=== PATIENT | male | born 1975 | race Caucasian/White ===

== ENCOUNTER 2022-03-18 09:46 | Emergency (ER) | payer OTHER, SELFPAY ==
--- OUTSIDE RECORDS SUMMARY | 2022-03-18 09:57 | XMS REPORT | Continuity of Care Document ---
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 Hg) 2016-01-10 17:17:00 Mem [facility]rial [facility] [place] Heart Rate 2016-01-10 17:17:00 [facility] Temperature Oral (F) 2016-01-10 17:17:00 97.6 F [facility] Systolic (mm Hg) 2016-01-10 12:27:00 [place] rial [facility] Diastolic (mm Hg) 2016-01-10 12:27:00 Mem orial [facility] [place] Respitory Rate 2016-01-10 12:27:00 [facility] [place] Heart Rate 2016-01-10 12:27:00 [facility] [place] Temperature Oral (F) 2016-01-10 12:27:00 98.5 F [facility] [place] Respitory Rate 2016-01-10 09:45:00 [facility] [place] Heart Rate 2016-01-10 09:45:00 [facility] [place] Temperature Oral (F) 2016-01-10 09:45:00 98.3 F [facility] Systolic (mm Hg) 2016-01-10 09:45:00 [place] rial [facility] Diastolic (mm Hg) 2016-01-10 09:45:00 Mem orial [place] Height 2016-01-08 23:55:00 172.72 cm [facility] Weight 2016-01-08 23:55:00 [facility] BMI Calculated 2016-01-08 23:55:00 Mem[facility] al [place] BMI Calculated 2016-01-08 17:31:00 [facility] Weight 2016-01-08 17:31:00 [facility] Height 2016-01-08 17:31:00 172.72 cm [facility] BMI Calculated 2016-01-05 15:52:00 [facility] [place] Weight 2016-01-05 15:52:00 [facility] [place] Height 2016-01-05 15:52:00 175.26 cm [facility] Systolic (mm Hg) 2016-01-03 16:57:00 [place] [facility] Diastolic (mm Hg) 2016-01-03 16:57:00 Mem orial [place] Respitory Rate 2016-01-03 16:57:00 [facility] [place] Heart Rate 2016-01-03 16:57:00 [facility] [place] Temperature Oral (F) 2016-01-03 16:57:00 98.2 F [facility] Temperature Oral (F) 2016-01-03 13:07:00 98 F [facility] Respitory Rate 2016-01-03 13:07:00 [facility] [place] Heart Rate 2016-01-03 13:07:00 [facility] Systolic (mm Hg) 2016-01-03 13:07:00 [place] rial Jaquan Diastolic (mm Hg) 2016-01-03 13:07:00 Mem [facility]rial [facility] [place] Systolic (mm Hg) 2016-01-03 09:21:00 [place] rial [facility] Diastolic (mm Hg) 2016-01-03 09:21:00 Mem orial [facility] Temperature Oral (F) 2016-01-03 09:21:00 98.5 F [facility] Respitory Rate 2016-01-03 09:21:00 [facility] [place] Heart Rate 2016-01-03 09:21:00 [facility] [place] Weight 2015-12-30 05:44:00 [facility] BMI Calculated 2015-12-30 05:44:00 [facility] [place] Height 2015-12-30 05:44:00 172.72 cm [facility] Height 2015-12-29 17:10:00 172.72 cm [facility] Weight 2015-12-29 17:10:00 [facility] BMI Calculated 2015-12-29 17:10:00 Memori al [facility] Procedures Procedure Date / Time Performed Performing Clinician [facility] e ASSIGNMENT OF BENEFITS 2020-12-08 15:33:46 Doctor Unassigned, No [facility] [place] Name [facility] ORIF - Open reduction [facility] and internal fixation of fracture Plan of Care Planned Activity Planned Date Details Comments Source Future Scheduled 2021-04-04 INFLUENZA VACCINE Univer sity of Test 00:00:00 (Season Ended) [facility] [place] [facility] [code = INFLUENZA Branch VACCINE (Season Ended)] Future Scheduled 2021-04-04 INFLUENZA VACCINE Univer sity of Test 00:00:00 (Season Ended) [facility] [place] [facility] [code = INFLUENZA Branch VACCINE (Season Ended)] Diagnostic Test 2020-12-08 ADC DRUG SCREEN Expected: Universit y of Pending 00:00:00 HPP II [code = 12/08/2020, [facility] [address]] Expires: Branch 12/08/2021 Future Scheduled 1996 DTaP,Tdap,and Td Univers ity of Test 00:00:00 Vaccines (1 - [facility] Tdap) [code = Branch DTaP,Tdap,and Td Vaccines (1 - Tdap)] Future Scheduled 1996 DTaP,Tdap,and Td Univers ity of Test 00:00:00 Vaccines (1 - [facility] Tdap) [code = Branch DTaP,Tdap,and Td Vaccines (1 - Tdap)] Future Scheduled 1995 Hepatitis C [facility] of Test 00:00:00 screening [facility] [place] [facility] (procedure) [code Branch = [id number]] Future Scheduled 1995 Hepatitis C [facility] Test 00:00:00 screening [facility] (procedure) [code Branch = [id number]] Future Scheduled 1993 SARS-CoV-2 [facility] Test 00:00:00 (COVID-19) Vaccine [place] [facility] (1) [code = Branch SARS-CoV-2 (COVID-19) Vaccine (1)] Future Scheduled 1993 SARS-CoV-2 [facility] of Test 00:00:00 (COVID-19) Vaccine [place] [facility] (1) [code = Branch SARS-CoV-2 (COVID-19) Vaccine (1)] Future Scheduled 1989 Depression [facility] Test 00:00:00 screening [facility] [place] [facility] (procedure) [code Branch = 398906258] Future Scheduled 1989 Depression [facility] Test 00:00:00 screening [facility] [place] [facility] (procedure) [code Branch = 092582757] Future Scheduled ADC DRUG SCREEN Universi ty of Test HPP II [code = [facility] 13969] Branch Encounters Start End Encounter Admission Attending Care Care Encounter Source Date/Time Date/Time Type Type Clinicians Facility Department ID 2022-02-23 2022-02-23 Outpatient ERICKSON_R [facility] [id number] [place] 01:35:00 01:35:00 [facility] 2022-02-21 2022-02-21 Credentialing Coordinator Jr [facility] [id number] [facility] 11:45:00 12:00:00 Visit Noé Olson [id number] [facility] [id number] Tate COLVIN [id number] Dc dical NAL 353 [facility] 2022-01-29 2022-01-29 Outpatient ERICKSON_R [facility] [id number] [place] 11:03:00 11:03:00 628 [facility] 2022-01-29 2022-01-29 Outpatient Chretien, [facility] [id number] 00:00:00 00:00:00 Nicole [id number] 2022-01-23 2022-01-23 Outpatient ERICKSON_R [facility] [id number] [place] 09:06:00 09:06:00 622 [facility] 2022-01-22 2022-01-22 Outpatient CHRETIEN_F [facility] [id number] [place] 10:30:00 10:30:00 621 [facility] 2021-12-25 2021-12-25 Outpatient WATERS_S [facility] [id number] [place] 02:30:00 02:30:00 524 [facility] 2021-11-28 2021-11-28 Outpatient WATERS_S [facility] [id number] [place] 11:53:00 11:53:00 427 [facility] 2021-11-28 2021-11-28 Outpatient Chretien, [facility] [id number] 00:00:00 00:00:00 Nicole [id number] 2021-11-28 2021-11-28 Outpatient Julio Cesar [facility] [id number] 00:00:00 00:00:00 Nicole [id number] 2021-11-06 2021-11-06 Outpatient [facility]ERS_S [facility] [id number] [place] 01:44:00 01:44:00 405 [facility] 2021-10-12 2021-10-12 Outpatient W[facility]ERS_S [facility] [id number] [place] 11:47:00 11:47:00 311 [facility] 2021-10-12 2021-10-12 Outpatient Damon [facility] [id number] 00:00:00 00:00:00 Anisa [id number] 2021-10-12 2021-10-12 Outpatient Damon [facility] [id number] 00:00:00 00:00:00 Anisa [id number] 2021-10-10 2021-10-10 Outpatient [facility]_S [facility] [id number] [place] 11:01:00 11:01:00 309 [facility] 2021-10-02 2021-10-02 Outpatient [facility] 931 [place] 02:48:00 02:48:00 _L 301 [facility] 2021-09-03 2021-09-03 Outpatient [facility] 93 [place] 02:45:00 02:45:00 _L 131 [facility] 2021-08-08 2021-08-08 Outpatient [facility] 93 [place] 05:49:00 05:49:00 _L 105 [facility] 2021-08-08 2021-08-08 Outpatient Brianna [facility] [id number] 00:00:00 00:00:00 Jacobo [id number] 2021-08-06 2021-08-06 Outpatient [facility] 931 [place] 05:36:00 05:36:00 _L 103 [facility] 2021-08-06 2021-08-06 Outpatient Damir [facility] [id number] 00:00:00 00:00:00 Jeremy [id number] Jerel [id number] 2021-06-16 2021-06-16 Outpatient [facility] 931 [place] 02:22:00 02:22:00 _L 113 [facility] 2021-05-12 2021-05-12 Outpatient [facility] 93 [place] 03:48:00 03:48:00 _L 009 [facility] 2021-04-07 2021-04-07 Outpatient [facility] 931 [place] 02:52:00 02:52:00 _L 904 [facility] 2021-03-06 2021-03-06 Outpatient [facility] 93 [place] 11:42:00 11:42:00 _L 803 [facility] 2021-03-06 2021-03-06 Outpatient [facility] 3ff [id number] 00:00:00 00:00:00 , Josefa [id number] Terri [id number] 2021-03-06 2021-03-06 Outpatient [facility] [id number] 00:00:00 00:00:00 , Josefa [id number] Terri [id number] 2021-03-03 2021-03-03 Outpatient [facility] 931 [place] 03:19:00 03:19:00 _L 731 [facility] 2021-03-03 2021-03-03 Outpatient [facility] 93 [place] 03:19:00 03:19:00 _L 802 [facility] 2021-02-14 2021-02-14 Outpatient [facility] 931 [place] 03:31:00 03:31:00 _L 714 [facility] 2021-02-13 2021-02-13 Outpatient [facility] 93 [place] 04:28:00 04:28:00 _L 713 [facility] 2021-02-13 2021-02-13 Outpatient [facility] [id number] 00:00:00 00:00:00 , Josefa [id number] Terri [id number] 2020-09-12 2020-09-12 Outpatient [facility] 931 [place] 05:38:00 05:38:00 _L 209 [facility] 2020-09-12 2020-09-12 Outpatient [facility] 931 [place] 05:38:00 05:38:00 _L 712 [facility] 2020-09-12 2020-09-12 Outpatient [facility] [id number] 00:00:00 00:00:00 , Josefa [id number] Terri [id number] 2020-08-24 2020-08-24 Outpatient [facility] 93 [place] 03:34:00 03:34:00 _L 121 [facility] 2020-08-21 2020-08-21 Outpatient [facility] 93 [place] 09:24:00 09:24:00 _L 118 [facility] 2020-08-18 2020-08-18 Outpatient [facility] 931 [place] 12:21:00 12:21:00 _L 115 [facility] 2020-08-18 2020-08-18 Outpatient [facility] [id number] 00:00:00 00:00:00 , Josefa [id number] Terri [id number] 2017-01-07 2017-01-07 [facility]STIANO [facility]AR, [facility] UTP [id number] [place] 10:15:00 10:15:00 t; Regina CESAR Physi ci Regina ALVARADO ans 2016-12-10 2016-12-10 AppointCHRISTIANO Celeste UTP UTP [id number] [place] 10:30:00 10:30:00 t; Regina CESAR Physi ci Regina ALVARADO ans 2016-09-10 2016-09-10 AppointCHRISTIANO Celeste UTP UTP [id number] [place] 10:45:00 10:45:00 t; Regina CESAR Physi arnulfo ALVARADO M.D. ans 2016-07-09 2016-07-09 [facility]ILBERT TREVINO UTP [id number] [place] 10:15:00 10:15:00 t; MATTHIAS TREVINO P.A. Physici JEANA, ans P.A. 2016-04-16 2016-04-16 AppointCHRISTIANO Celeste UTP UTP [id number] [place] 10:00:00 10:00:00 t; Regina CESAR Physi arnulfo ALVARADO M.D. ans 2016-03-05 2016-03-05 AppointGILBERT [place] UTP [id number] [place] 09:15:00 09:15:00 t; MATTHIAS TREVINO P.A. Physici JEANA, ans P.A. 2016-01-30 2016-01-30 AppointCHRISTIANO Celeste UTP UTP [id number] [place] 09:45:00 09:45:00 t; Regina CESAR Physi ci Regina ALVARADO ans 2016-01-15 2016-01-16 [facility] [id number] [place] 12:32:00 04:59:00 Surgery r [place] 02 [facility] 2016-01-15 2016-01-15 Appointmen CHRISTIANO CESAR, [facility] UTP [id number] [place] 07:30:00 07:30:00 t; Regina CESAR Physi arnulfo ALVARADO M.D. ans 2016-01-08 2016-01-[address] [facility] [id number] [place] 16:27:00 17:30:00 r Ja[facility] 2016-01-08 2016-01-08 Appointmen CHRISTIANO CESAR, [facility] UTP [id number] [place] 13:00:00 13:00:00 t; Regina CESAR Physi arnulfo ALVARADO M.D. ans 2015-12-29 2016-01-03 Inpatient [facility] [id number] [place] 17:10:00 23:20:00 r [place] 00 [facility] Results Test Description Test Time Test Comments Results Result Comments Source [facility] 2016-01-10 13:26:00 Test Item Value Reference Range Interpretation Comme nts AGAP (test code = AGAP) 13.5 10.0-20.0 [facility]HkugvckSQKHXPBHUWSD8953-55-45 13:26:00 Test Item Value Reference Range Interpretation Comments eGFR (test code = eGFR) 112 [facility] CenterRhmtqgyXGQMLZFTIJEG9918-46-22 13:26:00 Test Item Value Reference Range Interpretation Comments CO2 (test code = CO2) 26 24-32 [facility] CenterYyuvmduOXXNYMEQFJXH0345-18-71 13:26:00 Test Item Value Reference Range Interpretation Comments Sodium Lvl (test code = Sodium Lvl) 139 135-145 [facility] CenterOwunsigZMXKOZDNSCBC2527-90-39 13:26:00 Test Item Value Reference Range Interpretation Comments Creatinine Lvl (test code = Creatinine 0.82 0.50-1.40 Lvl) [facility] CenterHcjbuieZMNVYKFHEIFM6315-42-93 13:26:00 Test Item Value Reference Range Interpretation Comments Chloride Lvl (test code = Chloride Lvl) 104 95-109 [facility] CenterPibcszyAQDHHZQAJUFN1675-67-67 13:26:00 Test Item Value Reference Range Interpretation Comments Potassium Lvl (test code = Potassium 4.5 3.5-5.1 Lvl) [facility] CenterRpekxryYTHAYGNTAKVZ2272-45-19 13:26:00 Test Item Value Reference Range Interpretation Comments Glucose Lvl (test code = Glucose Lvl) 96 70-99 [facility] CenterMnkymofKRXNPUMOAPWN9083-30-31 13:26:00 Test Item Value Reference Range Interpretation Comments BUN (test code = BUN) 14 7-22 [facility] CenterFfqwricTCEEFKVWVCBD1323-29-19 13:26:00 Test Item Value Reference Range Interpretation Comments Calcium Lvl (test code = Calcium Lvl) 9.1 8.5-10.5 [facility] CenterXacgnbqHMZLUXQYLXJY1800-18-18 13:26:00 Test Item Value Reference Range Interpretation Comments Albumin Lvl (test code = Albumin Lvl) 3.4 3.5-5.0 [facility] CenterPxzwyzoZROUZHINQKUH2995-26-55 13:26:00 Test Item Value Reference Range Interpretation Comments Phosphorus (test code = Phosphorus) 4.2 2.5-4.5 [facility]JnexembTMYVMNPPQS5074-71-46 13:26:00 Test Item Value Reference Range Interpretation Comments Segs (test code = Segs) 68.6 45.0-75.0 [facility]neFhbhunoYRBSRFJPHE7846-29-53 13:26:00 Test Item Value Reference Range Interpretation Comments Eosinophils (test code = 0.9 See_Comment [A utomated message] The Eosinophils) system which ge nerated this result tra nsmitted reference range : <=4.0. The reference r diallo was not used to int erpret this result as normal/abnormal . [facility]neZaelbtkMPJISEXRKV5706-41-25 13:26:00 Test Item Value Reference Range Interpretation Comments Monocytes (test code = Monocytes) 10.0 2.0-12.0 [facility]neQcxffnzAZEVJKJNKB7292-92-33 13:26:00 Test Item Value Reference Range Interpretation Comments Segs-Bands # (test code = Segs-Bands #) 5.9 1.5-8.1 [facility]neHncbtasVFSMMWLUMI7074-45-97 13:26:00 Test Item Value Reference Range Interpretation Comments Basophils (test code = 0.4 See_Comment [Aut omated message] The Basophils) system which ge nerated this result tra nsmitted reference range : <=1.0. The reference r diallo was not used to int erpret this result as normal/abnormal . [facility]neBrwmmzbDZALXFTJCD8881-64-51 13:26:00 Test Item Value Reference Range Interpretation Comments Lymphocytes # (test code = Lymphocytes 1.7 1.0-5.5 #) [facility]neHnrxdlmRAXHGPISIS6406-66-11 13:26:00 Test Item Value Reference Range Interpretation Comments Monocytes # (test code 0.9 See_Comment [Aut omated message] The = Monocytes #) system which generated this result tra nsmitted reference range : <=0.8. The reference r diallo was not used to int erpret this result as normal/abnormal . [facility]neTsisxjoNGILLRTXBZ8074-91-50 13:26:00 Test Item Value Reference Range Interpretation Comments Eosinophils # (test code 0.1 See_Comment [A utomated message] The = Eosinophils #) system whic h generated this result tra nsmitted reference range : <=0.5. The reference r diallo was not used to int erpret this result as normal/abnormal . [facility]neOsvkmkyVFMEBOOJJJ1172-41-96 13:26:00 Test Item Value Reference Range Interpretation Comments Lymphocytes (test code = Lymphocytes) 20.1 20.0-40.0 [facility]neErlvhtfKHJGMKGRMG5324-21-63 13:26:00 Test Item Value Reference Range Interpretation Comments RDW (test code = RDW) 14.6 11.5-14.5 [facility]neMrskmjaKKEDDGYKNP3367-25-73 13:26:00 Test Item Value Reference Range Interpretation Comments Platelet (test code = Platelet) 323 133-450 [facility]neNtiyfmxKYCDSDOORB2329-14-59 13:26:00 Test Item Value Reference Range Interpretation Comments MPV (test code = MPV) 7.9 7.4-10.4 [facility]neXqusuwaBXXPLSDHTM7386-04-75 13:26:00 Test Item Value Reference Range Interpretation Comments Hct (test code = Hct) 32.5 42.0-54.0 [facility]neCbfxiimWGHDPFAQLR6633-46-06 13:26:00 Test Item Value Reference Range Interpretation Comments MCH (test code = MCH) 31.2 pg 27.0-31.0 [facility] Cle[facility]neDammmhsQEKKUQBTRE0469-10-83 13:26:00 Test Item Value Reference Range Interpretation Comments MCV (test code = MCV) 94.2 80.0-94.0 [facility] Cle[facility]neLlvywzpSLSSJHTSXI1177-02-84 13:26:00 Test Item Value Reference Range Interpretation Comments MCHC (test code = MCHC) 33.1 32.0-36.0 [facility] CleburneTraltmtZKMBKGXQLJ0250-56-98 13:26:00 Test Item Value Reference Range Interpretation Comments WBC (test code = WBC) 8.6 3.7-10.4 [facility]neXqpbdnaUJGBBQHWJC1660-17-22 13:26:00 Test Item Value Reference Range Interpretation Comments Hgb (test code = Hgb) 10.8 14.0-18.0 [facility]neKrbdahgWEJCTIXYPU3711-06-14 13:26:00 Test Item Value Reference Range Interpretation Comments RBC (test code = RBC) 3.45 4.70-6.10 [facility]neOqxchjuZHHCTNGBSA5708-27-63 09:41:00 Test Item Value Reference Range Interpretation Comments Lymphocytes # (test code = Lymphocytes 1.5 1.0-5.5 #) [facility]neBxcsgzyBCIMUUYXUB4751-29-27 09:41:00 Test Item Value Reference Range Interpretation Comments Segs-Bands # (test code = Segs-Bands #) 9.6 1.5-8.1 [facility] CleburneLtfvtbkNWWJMZNDIX6337-70-15 09:41:00 Test Item Value Reference Range Interpretation Comments Monocytes # (test code 1.1 See_Comment [Aut omated message] The = Monocytes #) system which generated this result tra nsmitted reference range : <=0.8. The reference r diallo was not used to int erpret this result as normal/abnormal . [facility]neAqkmhugFQTRWZRWYS1266-36-22 09:41:00 Test Item Value Reference Range Interpretation Comments Segs (test code = Segs) 78.3 45.0-75.0 [facility] CleburneErlsnzbCSAAOEZWMX5584-14-49 09:41:00 Test Item Value Reference Range Interpretation Comments Lymphocytes (test code = Lymphocytes) 12.3 20.0-40.0 [facility] Cle[facility]neQbwanogCIEXGYJQMM5923-31-07 09:41:00 Test Item Value Reference Range Interpretation Comments Basophils (test code = 0.2 See_Comment [Aut omated message] The Basophils) system which ge nerated this result tra nsmitted reference range : <=1.0. The reference r diallo was not used to int erpret this result as normal/abnormal . [facility]neAoppysiAVSIGDADLZ4475-34-01 09:41:00 Test Item Value Reference Range Interpretation Comments Monocytes (test code = Monocytes) 9.2 2.0-12.0 [facility]neHbkrmtaGLHNASNIMN7551-39-31 09:41:00 Test Item Value Reference Range Interpretation Comments Platelet (test code = Platelet) 341 133-450 [facility]neYfycdgrHHOABGPCDD7932-32-59 09:41:00 Test Item Value Reference Range Interpretation Comments MPV (test code = MPV) 7.8 7.4-10.4 [facility]neVsqfxajHBZLHFGWIT0583-43-19 09:41:00 Test Item Value Reference Range Interpretation Comments Hct (test code = Hct) 33.4 42.0-54.0 [facility]neQubpavcPEKDCFMKQX4140-45-03 09:41:00 Test Item Value Reference Range Interpretation Comments Hgb (test code = Hgb) 11.0 14.0-18.0 [facility]neJzrosxzMRFWFLFHYG7229-03-65 09:41:00 Test Item Value Reference Range Interpretation Comments RBC (test code = RBC) 3.48 4.70-6.10 [facility]neHpfsceoNBRIDAXINJ1282-09-57 09:41:00 Test Item Value Reference Range Interpretation Comments WBC (test code = WBC) 12.2 3.7-10.4 [facility]burneSgzxfpeNXQDNKAMHB4549-59-89 09:41:00 Test Item Value Reference Range Interpretation Comments RDW (test code = RDW) 14.7 11.5-14.5 [facility]neEmgsvpeCTGDMTMDIQ8762-51-16 09:41:00 Test Item Value Reference Range Interpretation Comments MCHC (test code = MCHC) 33.0 32.0-36.0 [facility] CleburneIodzorwAZEGSELCQA4877-32-31 09:41:00 Test Item Value Reference Range Interpretation Comments MCH (test code = MCH) 31.7 pg 27.0-31.0 [facility] CleburneHzhppmeLVMWHWNHYZ5125-75-86 09:41:00 Test Item Value Reference Range Interpretation Comments MCV (test code = MCV) 96.0 80.0-94.0 [facility]neSzqhxgkJQXCWQBZSV9902-97-50 21:40:00 Test Item Value Reference Range Interpretation Comments RDW (test code = RDW) 14.8 11.5-14.5 [facility]neWbjtejrQAAGWQQAAO8135-23-46 21:40:00 Test Item Value Reference Range Interpretation Comments MPV (test code = MPV) 7.9 7.4-10.4 [facility]neOpqoswiVYOXTOSBKZ6019-71-95 21:40:00 Test Item Value Reference Range Interpretation Comments Platelet (test code = Platelet) 364 133-450 [facility]neBwztennGYRQRBZMPP5195-15-62 21:40:00 Test Item Value Reference Range Interpretation Comments WBC (test code = WBC) 14.1 3.7-10.4 [facility] CleburneRcrcctxIHCRAXYPQW5426-86-82 21:40:00 Test Item Value Reference Range Interpretation Comments RBC (test code = RBC) 3.63 4.70-6.10 [facility]neRqbhavjMAYNGPOTKN0006-51-95 21:40:00 Test Item Value Reference Range Interpretation Comments Hct (test code = Hct) 35.2 42.0-54.0 [facility] CleburneBmertlfEANINISTZR6486-47-27 21:40:00 Test Item Value Reference Range Interpretation Comments MCH (test code = MCH) 31.1 pg 27.0-31.0 [facility] [place]xuirhlLDRXMEDTDL3604-69-21 21:40:00 Test Item Value Reference Range Interpretation Comments MCV (test code = MCV) 97.0 80.0-94.0 [facility] [place]AvxnxtfCTOGPIKVCI8560-95-63 21:40:00 Test Item Value Reference Range Interpretation Comments MCHC (test code = MCHC) 32.1 32.0-36.0 [facility] [place]neVziktuyPVAVCVVRNH2517-49-50 21:40:00 Test Item Value Reference Range Interpretation Comments Hgb (test code = Hgb) 11.3 14.0-18.0 [facility] [place]neBbokrnwFIBAOUVUJX0093-60-74 21:40:00 Test Item Value Reference Range Interpretation Comments Eosinophils # (test code 0.1 See_Comment [A utomated message] The = Eosinophils #) system whic h generated this result tra nsmitted reference range : <=0.5. The reference r diallo was not used to int erpret this result as normal/abnormal . [facility] [place]neHxrkuyoMMEBERKVBE4072-93-37 21:40:00 Test Item Value Reference Range Interpretation Comments Monocytes # (test code 0.5 See_Comment [Aut omated message] The = Monocytes #) system which generated this result tra nsmitted reference range : <=0.8. The reference r diallo was not used to int erpret this result as normal/abnormal . [facility] [place]neZryfzmeLDKSANQTHW2075-42-65 21:40:00 Test Item Value Reference Range Interpretation Comments Segs-Bands # (test code = Segs-Bands #) 11.6 1.5-8.1 [facility] [place]neMwyjcaqHZAJGGXGNF9354-99-00 21:40:00 Test Item Value Reference Range Interpretation Comments Basophils (test code = 0.3 See_Comment [Aut omated message] The Basophils) system which ge nerated this result tra nsmitted reference range : <=1.0. The reference r diallo was not used to int erpret this result as normal/abnormal . [facility] [place]neCrawcykLCCAQGJYJQ2342-43-10 21:40:00 Test Item Value Reference Range Interpretation Comments Eosinophils (test code = 0.9 See_Comment [A utomated message] The Eosinophils) system which ge nerated this result tra nsmitted reference range : <=4.0. The reference r diallo was not used to int erpret this result as normal/abnormal . [facility] [place]neVtwnzccFGZZACEEOL9521-34-71 21:40:00 Test Item Value Reference Range Interpretation Comments Lymphocytes # (test code = Lymphocytes 1.7 1.0-5.5 #) [facility] [place]neSvgdejwRFKLEMZIUA4092-48-12 21:40:00 Test Item Value Reference Range Interpretation Comments Segs (test code = Segs) 82.8 45.0-75.0 [facility] [place]neFhxkfkhFALZPCBPQP0355-39-89 21:40:00 Test Item Value Reference Range Interpretation Comments Monocytes (test code = Monocytes) 3.6 2.0-12.0 [facility] [place]neHvxzzpiODMNWSYDXD0368-10-62 21:40:00 Test Item Value Reference Range Interpretation Comments Lymphocytes (test code = Lymphocytes) 12.4 20.0-40.0 [facility]2016-06-01 09:44:00 Test Item Value Reference Range Interpretation Comments Phosphorus (test code = Phosphorus) 4.3 2.5-4.5 [facility]2016-06-01 09:44:00 Test Item Value Reference Range Interpretation Comments eGFR (test code = eGFR) 124 [facility]2016-06-01 09:44:00 Test Item Value Reference Range Interpretation Comments Chloride Lvl (test code = Chloride Lvl) 104 95-109 [facility]2016-06-01 09:44:00 Test Item Value Reference Range Interpretation Comments CO2 (test code = CO2) 25 24-32 [facility]2016-06-01 09:44:00 Test Item Value Reference Range Interpretation Comments AGAP (test code = AGAP) 16.0 10.0-20.0 [facility]2016-06-01 09:44:00 Test Item Value Reference Range Interpretation Comments Calcium Lvl (test code = Calcium Lvl) 8.0 8.5-10.5 [facility]2016-06-01 09:44:00 Test Item Value Reference Range Interpretation Comments Sodium Lvl (test code = Sodium Lvl) 141 135-145 [facility]2016-06-01 09:44:00 Test Item Value Reference Range Interpretation Comments Potassium Lvl (test code = Potassium 4.0 3.5-5.1 Lvl) [facility]2016-06-01 09:44:00 Test Item Value Reference Range Interpretation Comments BUN (test code = BUN) 10 7-22 [facility]2016-06-01 09:44:00 Test Item Value Reference Range Interpretation Comments Creatinine Lvl (test code = Creatinine 0.65 0.50-1.40 Lvl) [facility]2016-06-01 09:44:00 Test Item Value Reference Range Interpretation Comments Glucose Lvl (test code = Glucose Lvl) 95 70-99 [facility] [place]neTyjzjmxDZHHHZMJCI7924-29-22 09:44:00 Test Item Value Reference Range Interpretation Comments Platelet (test code = Platelet) 183 133-450 [facility] Cle[place]neTzencbrPZANZUPORY2975-74-20 09:44:00 Test Item Value Reference Range Interpretation Comments RDW (test code = RDW) 13.2 11.5-14.5 [facility] [place]nePctgofnKDCEBCOYXZ0363-58-76 09:44:00 Test Item Value Reference Range Interpretation Comments MCV (test code = MCV) 94.9 80.0-94.0 [facility] [place]neOmxkgjjBFJPMHFUUL6040-76-22 09:44:00 Test Item Value Reference Range Interpretation Comments MCHC (test code = MCHC) 34.1 32.0-36.0 [facility] [place]neSzzffthOOCAXRQXUT7354-25-77 09:44:00 Test Item Value Reference Range Interpretation Comments MPV (test code = MPV) 7.8 7.4-10.4 [facility] [place]neOyqrpflGCTOYAZHBF7779-82-77 09:44:00 Test Item Value Reference Range Interpretation Comments MCH (test code = MCH) 32.4 pg 27.0-31.0 [facility] [place]neVytcjyzWDLGNBIBBG9950-27-45 09:44:00 Test Item Value Reference Range Interpretation Comments WBC (test code = WBC) 5.8 3.7-10.4 [facility] [place]neOsylhplZWEVKVIXXQ6021-18-16 09:44:00 Test Item Value Reference Range Interpretation Comments RBC (test code = RBC) 2.60 4.70-6.10 [facility] [place]neAryeupwYXMHUOKGVJ4950-22-23 09:44:00 Test Item Value Reference Range Interpretation Comments Hgb (test code = Hgb) 8.4 14.0-18.0 [facility] [place]neOxyryxiTWSWSZRKUM1448-59-99 09:44:00 Test Item Value Reference Range Interpretation Comments Hct (test code = Hct) 24.7 42.0-54.0 [facility] [place]neYammqeuNFQHHXXLCQ2546-39-78 09:44:00 Test Item Value Reference Range Interpretation Comments Lymphocytes (test code = Lymphocytes) 24.4 20.0-40.0 [facility] [place]neVwhnshbJYNIUDFDIQ8129-04-96 09:44:00 Test Item Value Reference Range Interpretation Comments Monocytes (test code = Monocytes) 10.6 2.0-12.0 [facility] [place]neJrqqolwMEHQNHPYTB8538-53-17 09:44:00 Test Item Value Reference Range Interpretation Comments Eosinophils (test code = 4.3 See_Comment [A utomated message] The Eosinophils) system which ge nerated this result tra nsmitted reference range : <=4.0. The reference r diallo was not used to int erpret this result as normal/abnormal . [facility] [place]neFflptcqRVOXQHCDLW5938-68-62 09:44:00 Test Item Value Reference Range Interpretation Comments Basophils (test code = 0.2 See_Comment [Aut omated message] The Basophils) system which ge nerated this result tra nsmitted reference range : <=1.0. The reference r diallo was not used to int erpret this result as normal/abnormal . [facility] [place]neIshqkhiSDKGQBSZKY2424-03-05 09:44:00 Test Item Value Reference Range Interpretation Comments Segs (test code = Segs) 60.5 45.0-75.0 [facility] [place]neZkcvofaQRZEQSVZMC4585-60-17 09:44:00 Test Item Value Reference Range Interpretation Comments Eosinophils # (test code 0.3 See_Comment [A utomated message] The = Eosinophils #) system whic h generated this result tra nsmitted reference range : <=0.5. The reference r diallo was not used to int erpret this result as normal/abnormal . [facility] [place]neGltkyvaBMBLSSOKOB3611-08-63 09:44:00 Test Item Value Reference Range Interpretation Comments Segs-Bands # (test code = Segs-Bands #) 3.5 1.5-8.1 [facility] [place]neRyemyuiRKBUTZSVKF0051-00-84 09:44:00 Test Item Value Reference Range Interpretation Comments Lymphocytes # (test code = Lymphocytes 1.4 1.0-5.5 #) [facility] [place]neHvkvrirWDHKPHMFCE4470-28-38 09:44:00 Test Item Value Reference Range Interpretation Comments Monocytes # (test code 0.6 See_Comment [Aut omated message] The = Monocytes #) system which generated this result tra nsmitted reference range : <=0.8. The reference r diallo was not used to int erpret this result as normal/abnormal . [facility]2016-05-31 09:55:00 Test Item Value Reference Range Interpretation Comments eGFR (test code = eGFR) 118 [place] [id number] 09:55:00 Test Item Value Reference Range Interpretation Comments Glucose Lvl (test code = Glucose Lvl) 160 70-99 [facility]2016-05-31 09:55:00 Test Item Value Reference Range Interpretation Comments Creatinine Lvl (test code = Creatinine 0.73 0.50-1.40 Lvl) [facility]2016-05-31 09:55:00 Test Item Value Reference Range Interpretation Comments Sodium Lvl (test code = Sodium Lvl) 138 135-145 [place] [id number] 09:55:00 Test Item Value Reference Range Interpretation Comments BUN (test code = BUN) 8 7-22 [facility]2016-05-31 09:55:00 Test Item Value Reference Range Interpretation Comments Chloride Lvl (test code = Chloride Lvl) 103 95-109 [place] [id number] 09:55:00 Test Item Value Reference Range Interpretation Comments Potassium Lvl (test code = Potassium 3.4 3.5-5.1 Lvl) [facility]2016-05-31 09:55:00 Test Item Value Reference Range Interpretation Comments Calcium Lvl (test code = Calcium Lvl) 8.4 8.5-10.5 [facility]2016-05-31 09:55:00 Test Item Value Reference Range Interpretation Comments CO2 (test code = CO2) 29 24-32 [facility]2016-05-31 09:55:00 Test Item Value Reference Range Interpretation Comments AGAP (test code = AGAP) 9.4 10.0-20.0 [facility] [place]neKgpzmvlMGKRKPCNWF7029-15-11 09:55:00 Test Item Value Reference Range Interpretation Comments MCH (test code = MCH) 32.7 pg 27.0-31.0 [facility] [place]neAbwvkmpXDYHFQRNJK6106-68-72 09:55:00 Test Item Value Reference Range Interpretation Comments Hct (test code = Hct) 23.3 42.0-54.0 [facility] [place]neCkofvhfUNMWAACFVA4226-31-75 09:55:00 Test Item Value Reference Range Interpretation Comments MCV (test code = MCV) 94.1 80.0-94.0 [facility] [place]neBhfjicnVQHAZULYMI5737-58-09 09:55:00 Test Item Value Reference Range Interpretation Comments Hgb (test code = Hgb) 8.1 14.0-18.0 [facility] [place]neJgcnsanEWIBOAJOUI7663-38-27 09:55:00 Test Item Value Reference Range Interpretation Comments WBC (test code = WBC) 6.6 3.7-10.4 [facility] [place]neVjtitjsZFYVTMDWVP5150-18-01 09:55:00 Test Item Value Reference Range Interpretation Comments RBC (test code = RBC) 2.48 4.70-6.10 [facility] [place]neSmoftvfUVNRJTZLUO2239-59-97 09:55:00 Test Item Value Reference Range Interpretation Comments MCHC (test code = MCHC) 34.7 32.0-36.0 [facility] [place]neLysreqqEEVNFXXVJT5943-78-48 09:55:00 Test Item Value Reference Range Interpretation Comments MPV (test code = MPV) 7.9 7.4-10.4 [facility] [place]neBtdhlugYTESKTKLMK1678-47-28 09:55:00 Test Item Value Reference Range Interpretation Comments RDW (test code = RDW) 13.4 11.5-14.5 [facility] [place]neJnzmkprUKEYHPQGRH3060-37-07 09:55:00 Test Item Value Reference Range Interpretation Comments Platelet (test code = Platelet) 157 133-450 [facility] [place]neVozbaciDMJCNJINIB5357-71-72 09:55:00 Test Item Value Reference Range Interpretation Comments Monocytes # (test code 0.7 See_Comment [Aut omated message] The = Monocytes #) system which generated this result tra nsmitted reference range : <=0.8. The reference r diallo was not used to int erpret this result as normal/abnormal . [facility] [place]neFdovshmLXRTWQCEMB5593-75-30 09:55:00 Test Item Value Reference Range Interpretation Comments Lymphocytes # (test code = Lymphocytes 1.4 1.0-5.5 #) [facility] [place]neVskdgmhEHHFZDQVCL7416-87-50 09:55:00 Test Item Value Reference Range Interpretation Comments Eosinophils # (test code 0.3 See_Comment [A utomated message] The = Eosinophils #) system whic h generated this result tra nsmitted reference range : <=0.5. The reference r diallo was not used to int erpret this result as normal/abnormal . [facility] [place]neTvsoqjiCGKNGUYMCI2122-83-57 09:55:00 Test Item Value Reference Range Interpretation Comments Lymphocytes (test code = Lymphocytes) 21.0 20.0-40.0 [facility] [place]neRdywyiaMADVESTXCK0011-22-55 09:55:00 Test Item Value Reference Range Interpretation Comments Monocytes (test code = Monocytes) 10.1 2.0-12.0 [facility] [place]neNlfpcseRKHOHEKYQE3632-74-99 09:55:00 Test Item Value Reference Range Interpretation Comments Segs (test code = Segs) 64.8 45.0-75.0 [facility] [place]neHpyzoaxQNEJYBIWRJ7292-90-14 09:55:00 Test Item Value Reference Range Interpretation Comments Eosinophils (test code = 3.9 See_Comment [A utomated message] The Eosinophils) system which ge nerated this result tra nsmitted reference range : <=4.0. The reference r diallo was not used to int erpret this result as normal/abnormal . [facility] [place]neRfkkttxKVQPLQRWOQ8758-51-82 09:55:00 Test Item Value Reference Range Interpretation Comments Basophils (test code = 0.2 See_Comment [Aut omated message] The Basophils) system which ge nerated this result tra nsmitted reference range : <=1.0. The reference r diallo was not used to int erpret this result as normal/abnormal . [facility] [place]neYwbsebeUWXSHCQGFJ8358-09-69 09:55:00 Test Item Value Reference Range Interpretation Comments Segs-Bands # (test code = Segs-Bands #) 4.3 1.5-8.1 [facility]2016-05-30 05:28:00 Test Item Value Reference Range Interpretation Comments Phosphorus (test code = Phosphorus) 2.3 2.5-4.5 [facility] CenterHymvysyHZPJLLJLQICZ9501-92-25 05:28:00 Test Item Value Reference Range Interpretation Comments Sodium Lvl (test code = Sodium Lvl) 139 135-145 [facility] CenterLuigwqqKYSPWIZXZWCF6040-10-41 05:28:00 Test Item Value Reference Range Interpretation Comments Creatinine Lvl (test code = Creatinine 0.86 0.50-1.40 Lvl) [facility] CenterOjvnpxdZLHQMNPDRAAW2429-25-33 05:28:00 Test Item Value Reference Range Interpretation Comments Chloride Lvl (test code = Chloride Lvl) 102 95-109 [facility] CenterDisfvhnYAXMNIXAVJXX1722-55-90 05:28:00 Test Item Value Reference Range Interpretation Comments CO2 (test code = CO2) 29 24-32 [facility] CenterFcnehbcDFXRKRVNQUAL8760-26-95 05:28:00 Test Item Value Reference Range Interpretation Comments AGAP (test code = AGAP) 11.8 10.0-20.0 [facility] CenterWhfqaesMFILTTUYHGEI9918-26-89 05:28:00 Test Item Value Reference Range Interpretation Comments Glucose Lvl (test code = Glucose Lvl) 143 70-99 [facility] CenterAhwqudgWPQLGCBTVFMA6134-33-21 05:28:00 Test Item Value Reference Range Interpretation Comments BUN (test code = BUN) 8 7-22 [facility] CenterSbyldgaSARJNCHAISFE6826-07-01 05:28:00 Test Item Value Reference Range Interpretation Comments Potassium Lvl (test code = Potassium 3.8 3.5-5.1 Lvl) [facility] CenterZhibqpuFVAFNWGQLZTM5794-88-94 05:28:00 Test Item Value Reference Range Interpretation Comments Calcium Lvl (test code = Calcium Lvl) 8.1 8.5-10.5 [facility] CenterZxsavtnBKYJJNHUGEGC0541-62-94 05:28:00 Test Item Value Reference Range Interpretation Comments eGFR (test code = eGFR) 110 [facility] [place]neDptwuraZJLOVPUSYZ4645-49-17 05:28:00 Test Item Value Reference Range Interpretation Comments MCV (test code = MCV) 93.2 80.0-94.0 [facility] [place]neVrjuobjTWCZBNPPPN5973-88-57 05:28:00 Test Item Value Reference Range Interpretation Comments Hgb (test code = Hgb) 8.0 14.0-18.0 [facility] [place]neOuhxinuDUMXFBODPY1350-77-26 05:28:00 Test Item Value Reference Range Interpretation Comments MCH (test code = MCH) 33.0 pg 27.0-31.0 [facility] [place]neRtskmlaKXLTFLRKXK7670-36-27 05:28:00 Test Item Value Reference Range Interpretation Comments Hct (test code = Hct) 22.6 42.0-54.0 [facility] [place]neOmivrgzECMUVEMPDR8883-06-45 05:28:00 Test Item Value Reference Range Interpretation Comments RBC (test code = RBC) 2.43 4.70-6.10 [facility] [place]neNnjimssSNJSYZXGLL5211-53-43 05:28:00 Test Item Value Reference Range Interpretation Comments WBC (test code = WBC) 7.2 3.7-10.4 [facility] [place]neYukdvzzBOOHQRIDMM5739-69-73 05:28:00 Test Item Value Reference Range Interpretation Comments MPV (test code = MPV) 8.5 7.4-10.4 [facility] [place]neGfjhzsfXLTIMOYBWA4807-14-83 05:28:00 Test Item Value Reference Range Interpretation Comments RDW (test code = RDW) 13.1 11.5-14.5 [facility] [place]neRaxsysjUEBYBIXWMR9589-78-16 05:28:00 Test Item Value Reference Range Interpretation Comments Platelet (test code = Platelet) 132 133-450 [facility] [place]neUhgkdpeYJKNBRUGVV0921-15-23 05:28:00 Test Item Value Reference Range Interpretation Comments MCHC (test code = MCHC) 35.4 32.0-36.0 [facility] [place]neUrochlhPNGOQTFDZP4234-70-29 05:28:00 Test Item Value Reference Range Interpretation Comments Monocytes # (test code 0.6 See_Comment [Aut omated message] The = Monocytes #) system which generated this result tra nsmitted reference range : <=0.8. The reference r diallo was not used to int erpret this result as normal/abnormal . [facility] [place]neIynhhpsGINIFVKACP7963-82-92 05:28:00 Test Item Value Reference Range Interpretation Comments Eosinophils # (test code 0.2 See_Comment [A utomated message] The = Eosinophils #) system whic h generated this result tra nsmitted reference range : <=0.5. The reference r diallo was not used to int erpret this result as normal/abnormal . [facility] [place]neTmlfxbeDFSLIWJDCW2184-83-69 05:28:00 Test Item Value Reference Range Interpretation Comments Basophils (test code = 0.3 See_Comment [Aut omated message] The Basophils) system which ge nerated this result tra nsmitted reference range : <=1.0. The reference r diallo was not used to int erpret this result as normal/abnormal . [facility] [place]neGxnychqQNAXECJVBU7617-99-85 05:28:00 Test Item Value Reference Range Interpretation Comments Segs-Bands # (test code = Segs-Bands #) 4.8 1.5-8.1 [facility] [place]neYbeslsuKGCCCNFZNW1120-41-20 05:28:00 Test Item Value Reference Range Interpretation Comments Lymphocytes # (test code = Lymphocytes 1.6 1.0-5.5 #) [facility] [place]neSuvxjsrOUSKERUSIW8630-03-76 05:28:00 Test Item Value Reference Range Interpretation Comments Eosinophils (test code = 2.7 See_Comment [A utomated message] The Eosinophils) system which ge nerated this result tra nsmitted reference range : <=4.0. The reference r diallo was not used to int erpret this result as normal/abnormal . [facility] Cle[place]neQlidkauEOYRKIPDRJ8883-37-06 05:28:00 Test Item Value Reference Range Interpretation Comments Monocytes (test code = Monocytes) 8.6 2.0-12.0 [facility] [place]neKevnptbJVPWPVLMFB4340-81-46 05:28:00 Test Item Value Reference Range Interpretation Comments Segs (test code = Segs) 66.2 45.0-75.0 [facility] [place]neXvezokjLOVZXKKBPV8942-52-49 05:28:00 Test Item Value Reference Range Interpretation Comments Lymphocytes (test code = Lymphocytes) 22.2 20.0-40.0 [facility] [place]neMjxmvqlSIKRUBDOVY7765-67-98 09:03:00 Test Item Value Reference Range Interpretation Comments D-Dimer (test code = D-Dimer) 2.64 [facility]2016-05-29 08:18:00 Test Item Value Reference Range Interpretation Comments Phosphorus (test code = Phosphorus) 1.4 2.5-4.5 [place] 914156-05-29 08:18:00 Test Item Value Reference Range Interpretation Comments Albumin Lvl (test code = Albumin Lvl) 2.6 3.5-5.0 [place] 914156-05-29 08:18:00 Test Item Value Reference Range Interpretation Comments Magnesium Lvl (test code = Magnesium 2.1 1.8-2.4 Lvl) [facility]2016-05-28 05:28:00 Test Item Value Reference Range Interpretation Comments Lactic Acid Lvl (test code = Lactic 2.0 0.5-2.2 Acid Lvl) [place] 914156-05-28 02:49:00 Test Item Value Reference Range Interpretation Comments Lactic Acid WB (test code = Lactic Acid 2.1 0.5-2.2 WB) [place] 914156-05-27 22:01:12 Test Item Value Reference Range Interpretation Comments Lactic Acid WB (test code = Lactic Acid 4.3 0.5-2.2 WB) [place] 313956-05-27 21:50:00 Test Item Value Reference Range Interpretation Comments Max Amplitude Rapid (test code = Max 64 mm 52-71 Amplitude Rapid) [facility] [place]neDkmfvtjINTXVWIJCG4857-95-74 21:50:00 Test Item Value Reference Range Interpretation Comments G-value Rapid (test code = G-value 8.8 5.0-11.6 Rapid) [place] 313956-05-27 21:50:00 Test Item Value Reference Range Interpretation Comments Estimated % Lysis Rapid 1.0 See_Comment [Au tomated message] The (test code = Estimated syste m which generated % Lysis Rapid) this result t ransmitted reference range : <=7.5. The reference r diallo was not used to int erpret this result as normal/abnormal . [facility] [place]nePsnjnjkGPPSNLVLRZ3612-91-93 21:50:00 Test Item Value Reference Range Interpretation Comments ACT (TEG) Rapid (test code = ACT (TEG) 113 s 86-118 Rapid) [place] 313956-05-27 21:50:00 Test Item Value Reference Range Interpretation Comments Split Point Rapid (test code = Split 0.6 min Point Rapid) [facility] [place]neOosluxmLLUFMFOELV4644-01-74 21:50:00 Test Item Value Reference Range Interpretation Comments R-time Rapid (test code = R-time 0.7 min 0.4-0.7 Rapid) [facility] [place]neQdlhfidSRJLSRJIIF4645-48-69 21:50:00 Test Item Value Reference Range Interpretation Comments K-time Rapid (test code = K-time 1.2 min 0.6-2.3 Rapid) [facility]neLghemujLUPHCUALVL7819-80-27 21:50:00 Test Item Value Reference Range Interpretation Comments Angle Rapid (test code = Angle 75 degrees 64-80 Rapid) [facility] AND [id number] 20:55:31 Test Item Value Reference Range Interpretation Comments UA Sq Epi (test code = None Seen (12/29/15 3:55 UA Sq Epi) PM) [facility] AND [id number] 20:55:31 Test Item Value Reference Range Interpretation Comments UA Leuk Est (test Negative (12/29/15 3:55 code = UA Leuk Est) PM) [facility] AND [id number] 20:55:31 Test Item Value Reference Range Interpretation Comments UA Spec Grav (test code = UA Spec 1.020 1 Grav) [facility] AND [id number] 20:55:31 Test Item Value Reference Range Interpretation Comments UA Ketones (test code = Trace *ABN*(12/29/15 UA Ketones) 3:55 PM) [facility] System AND [id number] 20:55:31 Test Item Value Reference Range Interpretation Comments UA Bili (test code = Negative *NA*(12/29/15 UA Bili) 3:55 PM) [facility] AND [id number] 20:55:31 Test Item Value Reference Range Interpretation Comments UA Glucose (test code Negative (12/29/15 3:55 = UA Glucose) PM) [facility] AND [id number] 20:55:31 Test Item Value Reference Range Interpretation Comments UA Protein (test code = UA Protein) 30 mg/dL [facility] AND [id number] 20:55:31 Test Item Value Reference Range Interpretation Comments UA Nitrite (test code Negative (12/29/15 3:55 = UA Nitrite) PM) [facility] AND [id number] 20:55:31 Test Item Value Reference Range Interpretation Comments UA pH (test code = UA pH) 5.5 1 5.0-8.0 [facility] AND [id number] 20:55:31 Test Item Value Reference Range Interpretation Comments UA Urobilinogen (test code = UA 0.2 0.1-1.0 Urobilinogen) [facility] AND [id number] 20:55:31 Test Item Value Reference Range Interpretation Comments UA Blood (test code = Moderate *ABN*(12/29/15 UA Blood) 3:55 PM) [facility] AND [id number] 20:55:31 Test Item Value Reference Range Interpretation Comments UA Color (test code = Yellow *NA*(12/29/15 UA Color) 3:55 PM) [facility] AND [id number] 20:55:31 Test Item Value Reference Range Interpretation Comments UA Turbidity (test code Slight Cloudy = UA Turbidity) (12/29/15 3:55 PM) [facility] AND [id number] 20:55:31 Test Item Value Reference Range Interpretation Comments UA WBC (test code = UA None Seen (12/29/15 3:55 WBC) PM) [facility] AND [id number] 20:55:31 Test Item Value Reference Range Interpretation Comments UA Mucus (test code = UA Mucus) Rare /LPF [facility] AND [id number] 20:55:31 Test Item Value Reference Range Interpretation Comments UA Bacteria (test code = None Seen (12/29/15 UA Bacteria) 3:55 PM) [facility] AND [id number] 20:55:31 Test Item Value Reference Range Interpretation Comments UA Hyal Cast 3-5 (12/29/15 See_Comment [Automated mes jesenia] (test code = UA 3:55 PM) The system w hich Hyal Cast) generated this result transmitted ref erence range: <=2. The reference range was not used to int erpret this result as normal/abnormal . [facility] AND [id number] 20:55:31 Test Item Value Reference Range Interpretation Comments UA RBC (test code = 0-2 /HPF See_Comment [Automa annita message] The UA RBC) system which ge nerated this result tra nsmitted reference range : <=2. The reference range was not used to interpr et this result as giovanni l/abnormal. [employer] [id number] 20:39:00 Test Item Value Reference Range Interpretation Comments U Cannab Scr (test Negative *NA*(12/29/15 code = U Cannab Scr) 3:39 PM) [facility] [id number] 20:39:00 Test Item Value Reference Range Interpretation Comments U Amph Scr (test code Negative *NA*(12/29/15 = U Amph Scr) 3:39 PM) [facility] [id number] 20:39:00 Test Item Value Reference Range Interpretation Comments U Cocaine Scr (test Negative *NA*(12/29/15 code = U Cocaine Scr) 3:39 PM) [facility] [id number] 20:39:00 Test Item Value Reference Range Interpretation Comments U Benzodia Scr (test Negative *NA*(12/29/15 code = U Benzodia Scr) 3:39 PM) [employer] [id number] 20:39:00 Test Item Value Reference Range Interpretation Comments U Madison Scr (test code Negative *NA*(12/29/15 = U Madison Scr) 3:39 PM) [facility] [id number] 20:39:00 Test Item Value Reference Range Interpretation Comments U Opiate Scr (test Positive *ABN*(12/29/15 code = U Opiate Scr) 3:39 PM) [employer] [id number] 20:39:00 Test Item Value Reference Range Interpretation Comments UDS Note (test code = See Note (12/29/15 3:39 UDS Note) PM) [facility] [id number] 20:39:00 Test Item Value Reference Range Interpretation Comments U Phencyc Scr (test Negative *NA*(12/29/15 code = U Phencyc Scr) 3:39 PM) [employer] [id number] 18:02:00 Test Item Value Reference Range Interpretation Comments Antibody Scrn (test Negative (12/29/15 1:02 code = Antibody Scrn) PM) [employer] [id number] 18:02:00 Test Item Value Reference Range Interpretation Comments ABO/Rh (test code = ABO/Rh) A POS [facility]2016-05-27 17:23:18 Test Item Value Reference Range Interpretation Comments Lactic Acid Lvl (test code = Lactic 4.9 0.5-2.2 Acid Lvl) [id number] 17:23:18 Test Item Value Reference Range Interpretation Comments INR (test code = INR) 0.95 0.85-1.17 [id number] 17:23:18 Test Item Value Reference Range Interpretation Comments PT (test code = PT) 13.0 s 12.0-14.7 [id number] 17:23:18 Test Item Value Reference Range Interpretation Comments PTT (test code = PTT) 19.8 s 22.9-35.8 [place] [id number] 17:23:18 Test Item Value Reference Range Interpretation Comments Etoh (%) (test code = Etoh (%)) 0.205 [place] [id number] 17:23:18 Test Item Value Reference Range Interpretation Comments Ethanol Lvl (test code = Ethanol Lvl) 205 [facility]
--- NOTE | 2022-03-18 10:35 | ER ---
Nurse's Notes [facility] Name: Jethro Garzon Age: 46 yrs Sex: Male : 1975 Arrival Date: 03/18/2022 Time: 09:53 Bed 15 Private MD: Diagnosis: Pain in left toe(s) Presentation: 03/18 10:17 Chief complaint: Friend and/or Co-Worker states: Hit his left toe and they were jl7 bleeding, he's lethargic, pt denies pain, pt is lethargic. Coronavirus screen: At this time, the client does not indicate any symptoms associated with coronavirus-19. Ebola Screen: No symptoms or risks identified at this time. Initial Sepsis Screen: Does the patient meet any 2 criteria? No. Patient's initial sepsis screen is negative. Does the patient have a suspected source of infection? No. Patient's initial sepsis screen is negative. Risk Assessment: Do you want to hurt yourself or someone else? Patient reports no desire to harm self or others. Onset of symptoms is unknown. 10:17 Method Of Arrival: Wheelchair jl7 10:17 Acuity: SIRI 2 jl7 Triage Assessment: 10:20 General: Appears in no apparent distress. uncomfortable, Behavior is listless. Pain: jl7 Denies pain. Historical: - Allergies: 10:20 No Known Allergies; jl7 - PMHx: 10:20 Diabetes mellitus; Hypertensive disorder; jl7 - Immunization history:: Immunization history: Client reports having NOT received the Covid vaccine. - Social history:: Smoking status: Reported history of juuling and/or vaping. Assessment: 10:30 Reassessment: Patient is alert, oriented x 3, equal unlabored respirations, skin jg9 warm/dry/pink. Patient is alert/active/playful, equal unlabored respirations, skin warm/dry/pink. Patient refusing care, provider at bedside talking to the patient. Patient friend left keys with patient and reported she was ubering home. Patient is not safe to drive, appears to be under the influence, patient informed that if he attempts to get in his car and drive that we are obligated to call police for his safety and the safety of others. Patient is persistent that he is fine and he will be driving himself home. 10:40 Reassessment: Patient asked multiple times to call for a ride if he is not willing to j9 stay for care, he continues to refused, patient signed paperwork and walked out. police called and informed of the situation. Vital Signs: 10:17 BP 118 / 95; Pulse 94; Resp 22; Temp 97.5; Pulse Ox 97% ; Weight 88.45 kg; jl7 [place] Coma Score: 10:39 Eye Response: spontaneous(4). Verbal Response: oriented(5). Motor Response: obeys jl9 commands(6). Total: 15. ED Course: 09:53 Patient arrived in ED. mr 09:53 [facility] jl9 09:53 Jamey Sampson DO is Attending Physician. jl9 10:20 Triage completed. jl7 10:20 Arm band placed on right wrist. jl7 10:33 Adriana Zamora, RN is Primary Nurse. jg9 Administered Medications: No medications were administered Outcome: 10:35 Discharge ordered by MD. jl9 10:41 Patient left the ED. jg9 Signatures: Kelly RodriguezalAna Luisa, RN RN jl7 Adriana Zamora, SHERRILL RN jgZakiya Michael Langford jl9
--- NOTE | 2022-03-18 10:35 | EDPHYS ---
Physician Documentation [facility] Name: Jethro Garzon Age: 46 yrs Sex: Male : 1975 Arrival Date: 03/18/2022 Time: 09:53 Bed 15 Private MD: ED Physician Jamey Sampson HPI: 03/18 10:25 This 46 yrs old Male presents to ER via Wheelchair with complaints of Left jl9 toe pain s/p hitting in on a desk. Patient was brought in by friends. Patient has been staying at a hotel per friend and possibly doing drugs with alcohol. . Historical: - Allergies: 10:20 No Known Allergies; jl7 - PMHx: 10:20 Diabetes mellitus; Hypertensive disorder; jl7 - Immunization history:: Immunization history: Client reports having NOT received the Covid vaccine. - Social history:: Smoking status: Reported history of juuling and/or vaping. ROS: 10:37 Constitutional: Negative for fever, chills, and weight loss, Eyes: Negative for injury, jl9 pain, redness, and discharge, ENT: Negative for injury, pain, and discharge, Neck: Negative for injury, pain, and swelling, Cardiovascular: Negative for chest pain, palpitations, and edema, Respiratory: Negative for shortness of breath, cough, wheezing, and pleuritic chest pain, Abdomen/GI: Negative for abdominal pain, nausea, vomiting, diarrhea, and constipation, Back: Negative for injury and pain, : Negative for injury, bleeding, discharge, and swelling, MS/Extremity: Negative for injury and deformity, Skin: Negative for injury, rash, and discoloration, Neuro: Negative for headache, weakness, numbness, tingling, and seizure, Psych: Negative for depression, anxiety, suicide ideation, homicidal ideation, and hallucinations, Allergy/Immunology: Negative for hives, rash, and allergies, Endocrine: Negative for neck swelling, polydipsia, polyuria, polyphagia, and marked weight changes, Hematologic/Lymphatic: Negative for swollen nodes, abnormal bleeding, and unusual bruising. Exam: 10:38 Constitutional: The patient appears awake, lethargic, smells of alcohol. jl9 10:39 Head/Face: Normocephalic, atraumatic. Eyes: Pupils equal round and reactive to light, jl9 extra-ocular motions intact. Lids and lashes normal. Conjunctiva and sclera are non-icteric and not injected. Cornea within normal limits. Periorbital areas with no swelling, redness, or edema. ENT: Mucous membranes moist. Neck: Trachea midline, no thyromegaly or masses palpated, and no cervical lymphadenopathy. Supple, full range of motion without nuchal rigidity, or vertebral point tenderness. No Meningismus. Chest/axilla: Normal chest wall appearance and motion. Nontender with no deformity. No lesions are appreciated. Cardiovascular: Regular rate and rhythm with a normal S1 and S2. No gallops, murmurs, or rubs. Normal PMI, no JVD. No pulse deficits. Respiratory: Lungs have equal breath sounds bilaterally, clear to auscultation and percussion. No rales, rhonchi or wheezes noted. No increased work of breathing, no retractions or nasal flaring. Abdomen/GI: Soft, non-tender, with normal bowel sounds. No distension or tympany. No guarding or rebound. No evidence of tenderness throughout. Back: No spinal tenderness. No costovertebral tenderness. Full range of motion. Skin: Warm, dry with normal turgor. Normal color with no rashes, no lesions, and no evidence of cellulitis. MS/ Extremity: Pulses equal, no cyanosis. Neurovascular intact. Full, normal range of motion. Neuro: Awake and alert, GCS 15, oriented to person, place, time, and situation. Cranial nerves II-XII grossly intact. Motor strength 5/5 in all extremities. Sensory grossly intact. Cerebellar exam normal. Normal gait. 10:39 Constitutional: The patient appears alert, awake, lethargic. 10:39 Psych: Behavior/mood is Patient irritable and refuses to stay in the ED for further evaluation. . Vital Signs: 10:17 BP 118 / 95; Pulse 94; Resp 22; Temp 97.5; Pulse Ox 97% ; Weight 88.45 kg; jl7 [place] Coma Score: 10:39 Eye Response: spontaneous(4). Verbal Response: oriented(5). Motor Response: obeys jl9 commands(6). Total: 15. MDM: 10:23 Patient medically screened. jl9 10:31 Data reviewed: vital signs, nurses notes. jl9 10:41 Special discussion: Patient educated on the importance of staying in the ED for further jl9 workup. Patient denies any SI or HI. Patient refused and requesting to be discharged. Patient notified that PD would be called if he attempted to drive. . 03/18 10:20 Order name: Urine Dipstick-Ancillary (obtain specimen) jl9 03/18 10:20 Order name: IV Saline Lock jl9 Administered Medications: No medications were administered Disposition: 21:32 Co-signature as Attending Physician, Jamey Sampson DO I agree with the assessment and ms3 plan of care. Disposition Summary: 03/18/22 10:35 Discharge Ordered Location: Home jl9 Condition: Fair jl9 Diagnosis - Pain in left toe(s) jl9 Followup: jl9 - With: Private Physician - When: 1 - 2 days - Reason: Recheck today's complaints, Continuance of care, Re-evaluation by your physician Forms: - Medication Reconciliation Form jl9 - Thank You Letter jl9 - Antibiotic Education jl9 - Prescription Opioid Use jl9 Signatures: Dispatcher [employer] EDAna Luisa Ma RN RN jl7 Jamey Sampson DO DO ms3 Michael Langford jl9 Corrections: (The following items were deleted from the chart) 10:37 10:25 This 46 yrs old Male presents to ER via Wheelchair with complaints of jl9 Left toe pain s/p hitting in on a desk. . jl9
[2022-03-18 10:50] VITALS: BP 118/95; TEMP 97.5; O2SAT 97
== END 2022-03-18 10:41 | disposition home or self-care (01) ==
LOC: ER 09:46
DX: M79.675 Pain in left toe(s) (principal); E11.9 Type 2 diabetes mellitus without complications; I10 Essential (primary) hypertension
CPT/HCPCS: 82947; 99281